=== PATIENT | female | born 1960 | race Caucasian/White ===

== ENCOUNTER 2019-07-21 19:28 | Inpatient (IN) | payer OTHER, MEDICAID ==
[~2019-07-21] VITALS: Ht 170.2 cm; Wt 81.6 kg
[2019-07-21 19:28] VITALS: BP_SYST 148
[2019-07-21] MEDS ORDERED: NACL 0.9% 1,000 ML IV ONE (19:47)
[2019-07-21 20:48] LABS: BASOPHILS # (AUTO) 0.1 K/uL (0.0-0.2); EOSINOPHILS # (AUTO) 0.2 K/uL (0.0-0.4); HEMATOCRIT 46.2 % (36-48); LYMPHOCYTES # (AUTO) 1.4 K/uL (1.0-5.5); NEUTROPHILS # (AUTO) 1.7 K/uL (1.8-7.7); RED CELL DISTRIBUTION WIDTH 15.5 % (9.0-15.0); WHITE BLOOD COUNT (AUTO) 3.7 K/uL (4.8-10.8)
[2019-07-21 20:51] LABS: CALCIUM 9.3 mg/dL (8.4-11.0); CREATININE 0.83 mg/dL (0.55-1.30); POTASSIUM 3.7 mmol/L (3.5-5.1)
[2019-07-21 20:53] LABS: INR 1.1 (0.8-1.2); PROTHROMBIN TIME 11.1 SECS (9.5-12.5)
[2019-07-21 20:54] LABS: EOSINOPHILS % (AUTO) 4.6 % (0.0-4.0); HEMOGLOBIN 15.3 g/dL (12.0-16.0); LYMPHOCYTES % (AUTO) 38.2 % (20.5-51.5); MEAN CORPUSCULAR HEMOGLOBIN 31 pg (27-31); MEAN CORPUSCULAR HGB CONC 33 % (32-36); MEAN CORPUSCULAR VOLUME 94 fL (79.0-98.0); MONOCYTES # (AUTO) 0.4 K/uL (0.0-1.0); MONOCYTES % (AUTO) 9.5 % (1.7-9.3); NEUTROPHILS % (AUTO) 45.7 % (40.0-70.0); PLATELET COUNT (AUTO) 183 K/uL (130-430); RED BLOOD CELL COUNT(AUTO) 4.94 MIL/uL (4.2-6.2)
[2019-07-21 20:57] LABS: ALBUMIN 3.4 g/dL (3.4-4.8); TOTAL BILIRUBIN 1.1 mg/dL (0.0-1.0)
[2019-07-21] MEDS ORDERED: LACOSAMIDE 100 MG TABLET PO ONE (22:15)
[2019-07-21] MEDS ORDERED: APIXABAN 2.5 MG TABLET PO ONE (22:15)
[2019-07-21 22:48] LABS: ACETAMINOPHEN < 1 ug/mL (1-30)
[2019-07-21 22:50] LABS: ALCOHOL, BLOOD < 3 mg/dL (<10)
[2019-07-21] MEDS ORDERED: LACOSAMIDE 100 MG TABLET ONE (22:50)
[2019-07-21 22:59] LABS: CHOLESTEROL 188 mg/dL (<200); HDL CHOLESTEROL 50 mg/dL (>55); LDL CHOLESTEROL 116 mg/dL (<100); TRIGLYCERIDES 97 mg/dL (30-150)
[2019-07-22] VITALS (11 sets, daily range): BP systolic 110–148
[2019-07-22 02:17] LABS: BILIRUBIN,URINE 1+ (NEGATIVE); CLARITY/URINE CLOUDY (CLEAR); COLOR,URINE YELLOW (YELLOW); GLUCOSE,URINE NEGATIVE (NEGATIVE); KETONES,URINE 1+ (NEGATIVE); LEUKOCYTE ESTERASE ,URINE 1+ (NEGATIVE); NITRITE, URINE POSITIVE (NEGATIVE); PH,URINE 5.5 (5.0-8.0); PROTEIN URINE 1+ (NEGATIVE)
[2019-07-22 02:20] LABS: BLOOD, URINE TRACE (NEGATIVE)
[2019-07-22 02:29] LABS: BARBITURATE, URINE NEGATIVE (NEG <=200); BENZODIAZEPINE, URINE POSITIVE (NEG <=150); CANNABINOID, URINE NEGATIVE (NEG <=50); COCAINE, URINE NEGATIVE (NEG <=150); METHAMPHETAMINES SCREEN,URINE NEGATIVE (NEG <=500); OPIATE, URINE NEGATIVE (NEG <=100); PHENCYCLIDINE SCREEN,URINE NEGATIVE (NEG <=25); UR TRICYCLIC ANTIDEPRESSANTS NEGATIVE (NEG <=300); URINE AMPHETAMINE NEGATIVE (NEG <=500); URINE METHADONE NEGATIVE (NEG <=200); URINE OXYCODONE SCREEN NEGATIVE (NEG <=100); URINE PROPOXYPHENE SCREEN NEGATIVE (NEG <=300)
[2019-07-22 02:50] LABS: BACTERIA,URINE MODERATE /HPF (None Seen); CALCIUM OXALATE CRYSTALS,UR 0-10 /HPF (None Seen)
[2019-07-22] MEDS ORDERED: NITROFURANTOIN MONOHYD/M-CRYST 100 MG CAPSULE PO ONE (04:30)
[2019-07-22] MEDS ORDERED: levETIRAcetam 1,000 MG IV BAG 100 ML IV ONE (08:00)
[2019-07-22] MEDS ORDERED: LORazepam 2 MG/ML VIAL IVP ONE ×3 (08:00→13:15)
[2019-07-22] MEDS ORDERED: LORazepam 2 MG/ML VIAL ONE ×3 (08:10→13:29)
[2019-07-22] MEDS ORDERED: levETIRAcetam 500 MG TABLET PO ONE (10:30)
[2019-07-22] MEDS ORDERED: LORazepam 2 MG/ML VIAL IM ONE (12:00)
[2019-07-22] MEDS ORDERED: levETIRAcetam 500 MG in NS 100 ML IV ONE (12:00)
[2019-07-22] MEDS: D5NS 1,000 ML IV SCH (14:45)
[2019-07-22] MEDS ORDERED: FLU VACC QS2019-20 36MOS UP/PF 60 MCG/0.5 ML SYRINGE I.M. PRN (21:00)
[2019-07-22] MEDS ORDERED: levETIRAcetam 500 MG in NS 100 ML IV SCH (21:00)
[2019-07-22] MEDS: levETIRAcetam 500 MG in NS 100 ML IV SCH (21:51)
[2019-07-23] VITALS (20 sets, daily range): BP systolic 97–153
[2019-07-23] MEDS: D5NS 1,000 ML IV SCH ×2 (06:44→16:44)
[2019-07-23] MEDS ORDERED: ESCITALOPRAM OXALATE 10 MG TABLET PO SCH (09:00)
[2019-07-23] MEDS: levETIRAcetam 500 MG in NS 100 ML IV SCH ×2 (09:09→22:04)
[2019-07-23] MEDS: ENOXAPARIN SODIUM 30 MG/0.3 ML SYRINGE SUBCUT SCH (09:11)
[2019-07-23] MEDS: CITALOPRAM HYDROBROMIDE 20 MG TABLET PO SCH (09:14)
[2019-07-23] MEDS: LORazepam 2 MG/ML VIAL IVP PRN (23:48)
[2019-07-24] VITALS (8 sets, daily range): BP systolic 110–147
[2019-07-24] MEDS: D5NS 1,000 ML IV SCH ×2 (06:41→14:57)
[2019-07-24] MEDS: LORazepam 2 MG/ML VIAL IVP PRN ×3 (09:02→20:06)
[2019-07-24] MEDS: levETIRAcetam 500 MG in NS 100 ML IV SCH ×2 (09:03→20:08)
[2019-07-24] MEDS ORDERED: LORA-259 PO (09:27)
[2019-07-24] MEDS ORDERED: GABA-531 PO (09:28)
[2019-07-24] MEDS ORDERED: APIX5TAB4 PO (09:28)
[2019-07-24] MEDS ORDERED: FAMO20TA8 PO (09:28)
[2019-07-24] MEDS ORDERED: DULO60CA41 PO (09:28)
[2019-07-24] MEDS ORDERED: CEL250 PO (09:28)
[2019-07-24] MEDS ORDERED: TIZA4TAB11 PO (09:28)
[2019-07-24] MEDS ORDERED: PRED5TAB PO (09:28)
[2019-07-24] MEDS ORDERED: LACO100T2 PO (09:28)
[2019-07-24] MEDS ORDERED: BACTROBAN TP (09:28)
[2019-07-24] MEDS ORDERED: INSU100V7 SUBCUT (09:28)
[2019-07-24] MEDS ORDERED: INSU100V9 SQ (09:28)
[2019-07-24] MEDS: ENOXAPARIN SODIUM 30 MG/0.3 ML SYRINGE SUBCUT SCH (10:38)
[2019-07-24] MEDS: CITALOPRAM HYDROBROMIDE 20 MG TABLET PO SCH (10:38)
[2019-07-24] MEDS: MORPHINE 2 MG/ML INJ. SYRINGE IVP PRN (22:04)
[2019-07-24] MEDS ORDERED: LORazepam 2 MG/ML VIAL IM SCH (23:00)
[2019-07-24] MEDS ORDERED: HALOPERIDOL LACTATE 5 MG/ML VIAL IM SCH (23:00)
[2019-07-24] MEDS ORDERED: DIPHENHYDRAMINE INJ 50 MG/ML VIAL IM SCH (23:00)
[2019-07-25 00:06] VITALS: BP_SYST 132
[2019-07-25 10:00] VITALS: BP_SYST 121
[2019-07-25] MEDS: levETIRAcetam 500 MG in NS 100 ML IV SCH ×2 (10:03→22:49)
[2019-07-25] MEDS: ENOXAPARIN SODIUM 30 MG/0.3 ML SYRINGE SUBCUT SCH (10:11)
[2019-07-25] MEDS: CITALOPRAM HYDROBROMIDE 20 MG TABLET PO SCH (10:17)
[2019-07-25] MEDS: QUEtiapine FUMARATE 25 MG TABLET PO SCH ×3 (10:17→22:50)
[2019-07-25 12:33] VITALS: BP_SYST 138
[2019-07-25] MEDS: MORPHINE 2 MG/ML INJ. SYRINGE IVP PRN (15:07)
[2019-07-25 16:07] VITALS: BP_SYST 129
[2019-07-25 20:00] VITALS: BP_SYST 132
[2019-07-25] MEDS: LORazepam 2 MG/ML VIAL IVP PRN (20:40)
[2019-07-25] MEDS: D5NS 1,000 ML IV SCH (22:55)
[2019-07-26 00:41] VITALS: BP_SYST 132
[2019-07-26] MEDS: D5NS 1,000 ML IV SCH ×2 (01:56→15:14)
[2019-07-26] MEDS: MORPHINE 2 MG/ML INJ. SYRINGE IVP PRN ×2 (03:06→13:09)
[2019-07-26 08:00] VITALS: BP_SYST 122
[2019-07-26] MEDS: levETIRAcetam 500 MG in NS 100 ML IV SCH (08:40)
[2019-07-26] MEDS: QUEtiapine FUMARATE 25 MG TABLET PO SCH ×2 (08:41→15:18)
[2019-07-26] MEDS: CITALOPRAM HYDROBROMIDE 20 MG TABLET PO SCH (08:41)
[2019-07-26] MEDS: ENOXAPARIN SODIUM 30 MG/0.3 ML SYRINGE SUBCUT SCH (08:48)
[2019-07-26] MEDS ORDERED: LEVOFLOXACIN 500 MG TABLET PO ONE (09:30)
[2019-07-26 13:46] VITALS: BP_SYST 122
[2019-07-26 17:59] VITALS: BP_SYST 120
[2019-07-26 18:02] VITALS: BP_SYST 155
[2019-07-27] MEDS ORDERED: LEVOFLOXACIN 500 MG TABLET PO SCH (10:00)
== END 2019-07-26 20:30 | DRG 101 ==
LOC: SED 19:28 → SIC 07-22 12:11 → SMU 07-23 19:08
PROVIDERS: ADMIT Internal Medicine Hospice and Palliative Medicine; ATTEND Internal Medicine Hospice and Palliative Medicine
PROC: 05H533Z Insertion of Infusion Device into Right Subclavian Vein, Percutaneous Approach (ICD-10-PCS; principal; 2019-07-23)
PROC: B546ZZA Ultrasonography of Right Subclavian Vein, Guidance (ICD-10-PCS; 2019-07-23)
DX: G40.919 Epilepsy, unspecified, intractable, without status epilepticus (principal); R45.851 Suicidal ideations; N39.0 Urinary tract infection, site not specified; E11.9 Type 2 diabetes mellitus without complications; I48.91 Unspecified atrial fibrillation; I10 Essential (primary) hypertension; F32.9 Major depressive disorder, single episode, unspecified; B19.20 Unspecified viral hepatitis C without hepatic coma; F41.9 Anxiety disorder, unspecified; F03.90 Unspecified dementia, unspecified severity, without behavioral disturbance, psychotic disturbance, mood disturbance, and anxiety; Z79.899 Other long term (current) drug therapy; Z88.0 Allergy status to penicillin; Z88.6 Allergy status to analgesic agent
CPT/HCPCS: 36415; 70450-TC; 71045; 80053; 80061; 80307; 81000-TC; 83036; 83690-TC; 84484; 85025; 85610-TC; 85730-TC; 87081; 87086; 92610-GN; 93005; 95816; 96365; 96375; 96376; 99291; C1751; G0480; G0481; G0482; J1200; J1630; J1650; J1953; J2060; J2270; J7042

== ENCOUNTER 2019-08-14 13:04 | Emergency (ER) | payer OTHER, MEDICAID ==
[~2019-08-14] VITALS: Ht 170.2 cm; Wt 83.9 kg
[~2019-08-14 13:04] MED LIST: APIX5TAB4 PO; BACTROBAN TP; CEL250 PO; DULO60CA41 PO; FAMO20TA8 PO; GABA-531 PO; INSU100V7 SUBCUT; INSU100V9 SQ; LACO100T2 PO; LORA-259 PO; PRED5TAB PO; TIZA4TAB11 PO
[2019-08-14 13:15] VITALS: BP_SYST 153
--- NOTE | 2019-08-14 13:22 | NUR ---
PATIENT PRESENTS TO THE ER WITH HX OF SUICIDAL IDEATION TODAY (ONCE AT 0500 AND 1230) PER CAREGIVER; PATIENT ALSO STATES RIGHT SHOULDER PAIN; NO TRAUMA, NO OTHER REMARKABLE S/S
--- NOTE | 2019-08-14 13:28 | NUR ---
PATIENT TO ER #6
--- NOTE | 2019-08-14 13:30 | NUR ---
Patient presents to ER C/O SUICIDAL IDEATION with out a plan . Patient A&Ox4, BIB BLS to ER, afebrile, skin pink and warm, pain 9/10 bilat legs, denies N/V/D. Patient states "I will kill myself if i get sent back to that nursing facility. They just put you in a corner and let you lay in your dirty diaper."
--- NOTE | 2019-08-14 13:48 | NUR ---
ER Dr. Mahtew at bedside examining patient.
--- NOTE | 2019-08-14 13:49 | NUR ---
Zuleika good in ED - 08/14/19 at 1540 by SDEDTD JOVANI Cazares at bedside examining patient.
[2019-08-14 14:26] LABS: BASOPHILS % (AUTO) 0.9 % (0.0-2.0); EOSINOPHILS # (AUTO) 0.1 K/uL (0.0-0.4); EOSINOPHILS % (AUTO) 2.6 % (0.0-4.0); HEMATOCRIT 42.4 % (36-48); HEMOGLOBIN 13.9 g/dL (12.0-16.0); LYMPHOCYTES # (AUTO) 2.1 K/uL (1.0-5.5); LYMPHOCYTES % (AUTO) 51.9 % (20.5-51.5); MEAN CORPUSCULAR HEMOGLOBIN 31 pg (27-31); MEAN CORPUSCULAR HGB CONC 33 % (32-36); MEAN CORPUSCULAR VOLUME 94 fL (79.0-98.0); MONOCYTES # (AUTO) 0.5 K/uL (0.0-1.0); MONOCYTES % (AUTO) 12.3 % (1.7-9.3); NEUTROPHILS # (AUTO) 1.3 K/uL (1.8-7.7); NEUTROPHILS % (AUTO) 32.3 % (40.0-70.0); PLATELET COUNT (AUTO) 153 K/uL (130-430); RED BLOOD CELL COUNT(AUTO) 4.52 MIL/uL (4.2-6.2); RED CELL DISTRIBUTION WIDTH 15.1 % (9.0-15.0)
[2019-08-14 15:05] LABS: ANION GAP 8 (5-15); CALCIUM 9.3 mg/dL (8.4-11.0); CHLORIDE 101 mmol/L (98-107); CREATININE 0.55 mg/dL (0.55-1.30); GLUCOSE 107 mg/dL (70-99); POTASSIUM 3.5 mmol/L (3.5-5.1); SODIUM SERUM 137 mmol/L (136-145); UREA NITROGEN, BLOOD 6 mg/dL (8-21)
[2019-08-14 15:11] LABS: GFR AFRICAN AMERICAN 145 mL/min (>90)
[2019-08-14 15:13] LABS: ACETAMINOPHEN < 1 ug/mL (1-30); ALANINE AMINOTRANSFERASE 22 U/L (12-78); ALBUMIN 3.5 g/dL (3.4-4.8); ALCOHOL, BLOOD < 3 mg/dL (<10); ASPARTATE AMINOTRANSFERASE 34 U/L (10-37); TOTAL BILIRUBIN 0.7 mg/dL (0.0-1.0)
--- NOTE | 2019-08-14 15:15 | NUR ---
Urine specimen collected and analyzed in ER. Results given to ER MD.# 14 FR In and Out catheter with use of sterile technique. Immediate return of 20 ml yellow urine noted. Urine sample collected and sent to lab. Pt tolerated procedure well. Patient unable to toilet self.
[2019-08-14 16:07] LABS: BILIRUBIN,URINE NEGATIVE (NEGATIVE); BLOOD, URINE NEGATIVE (NEGATIVE); COLOR,URINE YELLOW (YELLOW); GLUCOSE,URINE NEGATIVE (NEGATIVE); KETONES,URINE TRACE (NEGATIVE); LEUKOCYTE ESTERASE ,URINE NEGATIVE (NEGATIVE); NITRITE, URINE NEGATIVE (NEGATIVE); PH,URINE 6.5 (5.0-8.0); PROTEIN URINE NEGATIVE (NEGATIVE)
[2019-08-14 16:26] LABS: CLARITY/URINE HAZY (CLEAR)
[2019-08-14 17:24] LABS: BARBITURATE, URINE NEGATIVE (NEG <=200); BENZODIAZEPINE, URINE POSITIVE (NEG <=150); CANNABINOID, URINE NEGATIVE (NEG <=50); COCAINE, URINE NEGATIVE (NEG <=150); METHAMPHETAMINES SCREEN,URINE NEGATIVE (NEG <=500); OPIATE, URINE NEGATIVE (NEG <=100); PHENCYCLIDINE SCREEN,URINE NEGATIVE (NEG <=25); UR TRICYCLIC ANTIDEPRESSANTS NEGATIVE (NEG <=300); URINE AMPHETAMINE NEGATIVE (NEG <=500); URINE METHADONE NEGATIVE (NEG <=200); URINE OXYCODONE SCREEN NEGATIVE (NEG <=100); URINE PROPOXYPHENE SCREEN NEGATIVE (NEG <=300)
--- NOTE | 2019-08-14 18:15 | NUR ---
Davide Kline at bedside
--- NOTE | 2019-08-14 18:15 | NUR ---
[facility], Psych Lawrence Phuc, intake given report for possible admission.
--- NOTE | 2019-08-14 18:30 | NUR ---
Patient given ER box lunch
--- NOTE | 2019-08-14 19:20 | NUR ---
REPORT GIVEN TO DENTON STERN
--- NOTE | 2019-08-14 19:50 | NUR ---
RECEIVED AWAKE, ALERT, VERBALLY RESPONSIVE. AFEBRILE, NOT IN ACUTE DISTRESS. NO PAIN OR DISCOMFORT NOTED. SITTER AT BEDSIDE FOR SUICIDE PRECAUTION. WILL CONTINUE TO MONITOR
--- NOTE | 2019-08-14 23:00 | NUR ---
AWAKE, NOT IN ANY KIND OF DISTRESS. NO PAIN OR DISCOMFORT NOTED. STILL NO ACCEPTING PSYCHIATRIC FACILITY AT THIS TIME. SITTER REMAINS AT BEDSIDE. WILL CONTINUE TO MONITOR. NEEDS ATTENDED.
[2019-08-15] MEDS ORDERED: ACETAMINOPHEN 500 MG TABLET PO ONE ×2 (04:30→09:00)
--- NOTE | 2019-08-15 04:54 | NUR ---
COMPLAINED OF HEADACHE. MD NOTIFIED. TYLENOL 1 GM PO GIVEN ORDERED.
--- NOTE | 2019-08-15 05:00 | NUR ---
PT. HAS BEEN REFUSING TO EAT. FINGERSTICK BLOOD SUGAR CHECK DONE AND IS 122.
--- NOTE | 2019-08-15 07:00 | NUR ---
AWAKE,HEADACHE BETTER. VS REMAIN STABLE. WILL ENDORSE CARE TO AM SHIFT.
--- NOTE | 2019-08-15 07:09 | NUR ---
ENDORSED CARE TO AM SHIFT NURSE ROX METZGER.
--- NOTE | 2019-08-15 08:46 | NUR ---
REASSESSMENT; FULL HEAD TO TOE ASSESSMENT WITH LINEN CHANGE; PATIENT REMAINS WITH SUICIDAL IDEATION; STATES GENERALIZED HEADACHE; ERMD ADVISED; OTHERWISE UNCHANGED; PATIENT DISPOSITION TO PSYCHATRY PENDING
--- NOTE | 2019-08-15 08:49 | NUR ---
PATIENT DECLINED MEDICATION FOR HEADACHE; BLOOD GLUCOSE 118
[2019-08-15] MEDS ORDERED: APIXABAN 2.5 MG TABLET PO SCH (10:45)
[2019-08-15] MEDS ORDERED: MYCOPHENOLATE MOFETIL 250 MG CAPSULE PO SCH (10:45)
[2019-08-15] MEDS ORDERED: PREDNISONE 5 MG TABLET PO ONE (10:45)
[2019-08-15] MEDS ORDERED: DULoxetine HCL 30 MG CAPSULE.DR (CYMBALTA) PO SCH (10:45)
[2019-08-15] MEDS ORDERED: tiZANidine HCL 4 MG TABLET PO SCH (10:45)
[2019-08-15] MEDS ORDERED: FAMOTIDINE 20 MG TABLET PO ONE (10:45)
[2019-08-15] MEDS ORDERED: APIXABAN 2.5 MG TABLET PO ONE (10:45)
--- NOTE | 2019-08-15 10:45 | NUR ---
REASSESSMENT; PATIENT DENIES PAIN CURRENTLY; REFUSING MEDICATIONS AND MEALS; OTHERWISE UNCHANGED; ERMD ADVISED
[2019-08-15] MEDS ORDERED: tiZANidine HCL 4 MG TABLET PO ONE (11:30)
[2019-08-15] MEDS ORDERED: MYCOPHENOLATE MOFETIL 250 MG CAPSULE PO ONE (11:30)
[2019-08-15] MEDS ORDERED: DULoxetine HCL 30 MG CAPSULE.DR (CYMBALTA) PO ONE (11:30)
--- NOTE | 2019-08-15 12:09 | NUR ---
PATIENT OFFERED DIABETIC LUNCH AND WAS ABLE TO EAT WELL; AGREED TO TAKE MEDICATIONS; OTHERWISE UNCHANGED
--- NOTE | 2019-08-15 12:25 | NUR ---
PATIENT WAS ABLE TO TAKE SEVERAL MEDICATIONS; BUT REFUSED PREDNISONE, CELLCEPT, DULOXETINE, ELIQUIS
[2019-08-15] MEDS: LACOSAMIDE 100 MG TABLET PO SCH ×2 (13:06→21:00)
--- NOTE | 2019-08-15 13:12 | NUR ---
REASSESSMENT; PATIENT AGREED TO TAKE VIMPAT AND DULOXETINE; HOWEVER STILL DECLINES ALL PREVIOUS; PATIENT REMAINS SEDATE AND PAIN FREE AND IS OTHERWISE UNCHANGED; DISPOSITION PENDING
--- NOTE | 2019-08-15 15:05 | NUR ---
REASSESSMENT; PATIENT IS SEDATE AND UNCHANGED; DISPOSITION PENDING
--- NOTE | 2019-08-15 17:52 | NUR ---
REASSESSMENT; PATIENT UPGRADED TO HOSPITAL BED, REMAINS SEDATE AND PAIN FREE; DIABETIC DINNER ORDERED; OTHERWISE UNCHANGED; DISPOSITION PENDING
--- NOTE | 2019-08-15 19:43 | NUR ---
Pt resting comfortably in bed with no signs of distress
--- NOTE | 2019-08-15 20:50 | NUR ---
Pt resting comfortably in bed with no signs of distress
--- NOTE | 2019-08-15 22:00 | NUR ---
PT resting comfortably in bed with no signs of distress
[2019-08-15] MEDS: DULoxetine HCL 30 MG CAPSULE.DR (CYMBALTA) PO SCH (22:17)
--- NOTE | 2019-08-15 23:50 | NUR ---
Medication administered. Pt tolerated well.
[2019-08-15] MEDS: tiZANidine HCL 4 MG TABLET PO SCH (23:56)
[2019-08-16] MEDS: MYCOPHENOLATE MOFETIL 250 MG CAPSULE PO SCH ×3 (00:02→23:10)
--- NOTE | 2019-08-16 00:19 | NUR ---
Eliquis not loaded in [employer]. supervisor liquid yeast made aware. Unable to override eliquis in system. Pt refused Vimpat and requested Ativan. Dr. Antonio notified.
--- NOTE | 2019-08-16 01:38 | NUR ---
Pt resting comfortably in bed with no signs of distress.
--- NOTE | 2019-08-16 03:35 | NUR ---
Care endorsed to Piero STERN
--- NOTE | 2019-08-16 03:45 | NUR ---
Pt resting comfortably in bed with no complaints
--- NOTE | 2019-08-16 04:07 | NUR ---
Report received from LEENA Burch. All care endorsed.
--- NOTE | 2019-08-16 05:59 | NUR ---
Pt resting in bed with no complaints. Vital signs stable.
--- NOTE | 2019-08-16 07:07 | NUR ---
Report given to LEENA Honeycutt to endorse all care.
[2019-08-16] MEDS: LACOSAMIDE 100 MG TABLET PO SCH ×2 (09:00→23:11)
--- NOTE | 2019-08-16 09:00 | NUR ---
PT RESTING IN BED, NO COMPLAINTS AT THIS TIME, AO3, COMPLIANT WITH CARE.
[2019-08-16] MEDS: tiZANidine HCL 4 MG TABLET PO SCH ×3 (10:36→23:11)
[2019-08-16] MEDS: DULoxetine HCL 30 MG CAPSULE.DR (CYMBALTA) PO SCH (10:37)
[2019-08-16] MEDS: APIXABAN 2.5 MG TABLET PO SCH ×3 (10:38→21:00)
--- NOTE | 2019-08-16 11:00 | NUR ---
CLEANED UP PT AFTER USING RESTROOM. SHE IS ABLE TO ASSIST WITH TURNING AND CLEANING. UNABLE TO USE BEDSIDE COMMODE DUE TO WEAKNESS
--- NOTE | 2019-08-16 12:30 | NUR ---
PT IN BED NO OUTWARD DISTRESS, PT BLOOD PRESSURE LOW. DR FLETCHER NOTIFIED AND ORDERS MADE.
[2019-08-16] MEDS ORDERED: NACL 0.9% 1,000 ML IV ONE (12:45)
--- NOTE | 2019-08-16 13:30 | NUR ---
PT VSS, AO3, CALM AND COOPERATIVE, NO DISTRESS.
--- NOTE | 2019-08-16 14:30 | NUR ---
PT IN BED, SLEEPING AT THIS TIME.
--- NOTE | 2019-08-16 15:30 | NUR ---
SLEEPING AT THIS TIME. VSS
--- NOTE | 2019-08-16 16:30 | NUR ---
PT IS AWAKE AND DOES NOT APPEAR TO BE IN ANY DISTRESS AT THIS TIME. COMFORTABLE IN THE BED.
--- NOTE | 2019-08-16 17:45 | NUR ---
PT AWAKE, CALM AND COOPERATIVE, NO S/S OF DISTRESS
--- NOTE | 2019-08-16 19:00 | NUR ---
PT RESTING IN BED AT THIS TIME NO COMPLAINTS
--- NOTE | 2019-08-16 20:44 | NUR ---
Called dry house tender to obtain medications Elliquis, tizandine and vimpat due to not having them in ER pixus. Pneumatic Drum Sander states, "I will look for it and bring it to you if I can find these medications."
--- NOTE | 2019-08-16 21:40 | NUR ---
Obtained vimpat and tizanide from Program Consultant but was told by Program Consultant Cedrick is not in any pixus.
--- NOTE | 2019-08-16 22:00 | NUR ---
Attempted to administered medications to patient. Pt responds by pointing at me and glaring. Pt then yells "OUT".
--- NOTE | 2019-08-16 23:13 | NUR ---
Note latisha in [facility] - 08/17/19 at 0256 by KAI Patient resting quietly. No acute distress noted. Vital signs within normal range.
--- NOTE | 2019-08-16 23:13 | NUR ---
Attempted to medicate pt and pt states, "I do not need medications." Pt states "I will not take those."
--- NOTE | 2019-08-17 00:20 | NUR ---
Patient resting quietly. No acute distress noted. Vital signs within normal range.
--- NOTE | 2019-08-17 01:54 | NUR ---
Pt gown changed. Perineal care given. Bed linens changed. Pt tolerated well.
--- NOTE | 2019-08-17 02:33 | NUR ---
Pt sleeping at this time. No distress noted.
--- NOTE | 2019-08-17 04:31 | NUR ---
Pt asks for water. Water provided to pt. Will continue to monitor.
--- NOTE | 2019-08-17 06:07 | NUR ---
Pt resting in bed. Pt states no pain at this time.
--- NOTE | 2019-08-17 07:13 | NUR ---
Report given to LEENA Teixeira to endorse all care.
--- NOTE | 2019-08-17 09:26 | NUR ---
REASSESSMENT; FULL HEAD TO TOE ASSESSMENT; NO REMARKABLE ACUTE FINDINGS OR S/S; PATIENT REFUSING MEDICATIONS AND BREAKFAST AND IS DEPONDANT REGARDING POSSIBLE RETURN TO SNF; HOWEVER, DENIES ANY SUICIDAL IDEATION; NO OTHER REMARKABLE S/S; DISPOSITION PENDING
--- NOTE | 2019-08-17 09:38 | NUR ---
MALINDA CARE AND LINEN CHANGED
--- NOTE | 2019-08-17 11:12 | NUR ---
REASSESSMENT; PATIENT REMAINS SEDATE AND UNCHANGED; NO SUICIDAL IDEATION, HOWEVER REFUSING MEALS AND MEDS; DISPOSITION PENDING
--- NOTE | 2019-08-17 12:46 | NUR ---
REASSESSMENT; PATIENT IS SEDATE AND UNCHANGED; DIABETIC LUNCH PROVIDED; PATIENT REFUSING MEDICATIONS; DISPOSITION PENDING
--- NOTE | 2019-08-17 12:47 | NUR ---
DR MARTINEZ DUE TO EVALUATE PATIENT FOR CESSATION OF 5150 HOLD DURATION
--- NOTE | 2019-08-17 14:29 | NUR ---
DR MARTINEZ HERE TO ASSESS PATIENT Addendum: 08/17/19 at 1446 by MEDMT CORRECTION; DR WATERS HERE TO SEE PATIENT
--- NOTE | 2019-08-17 14:47 | NUR ---
PATIENT PLACED ON [address] WATERS
--- NOTE | 2019-08-17 15:27 | NUR ---
REASSESSMENT; PATIENT DECLINES MEDICATIONS; HOWEVER STATES SHE WILL TAKE THEM WITH DINNER TONIGHT; OTHERWISE SEDATE AND UNCHANGED
--- NOTE | 2019-08-17 16:17 | NUR ---
LINEN CHANGE AND MALINDA CARE
--- NOTE | 2019-08-17 17:54 | NUR ---
Pt laying in bed comfortably with no signs of distress. Pt states she will take medications after dinner.
--- NOTE | 2019-08-17 19:00 | NUR ---
Security at bedside to buddy harris
--- NOTE | 2019-08-17 20:51 | NUR ---
Pt given dinner tray. Pt laying in bed comfortably with no complaints
--- NOTE | 2019-08-17 21:37 | NUR ---
Pt refusing medication at this time.
--- NOTE | 2019-08-17 22:46 | NUR ---
Pt assisted with bed white. Pt had 1 bowel movement, tolerated well. Will continue to monitor.
[2019-08-17] MEDS: MYCOPHENOLATE MOFETIL 250 MG CAPSULE PO SCH (23:55)
[2019-08-17] MEDS: DULoxetine HCL 30 MG CAPSULE.DR (CYMBALTA) PO SCH (23:56)
[2019-08-17] MEDS: tiZANidine HCL 4 MG TABLET PO SCH (23:57)
[2019-08-17] MEDS: APIXABAN 2.5 MG TABLET PO SCH (23:57)
--- NOTE | 2019-08-18 | NUR ---
Pt agreed to take PM meds. Pt toleratd well. No adverse reactions noted.
--- NOTE | 2019-08-18 01:15 | NUR ---
Pt resting comfortably in bed with no signs of distress
--- NOTE | 2019-08-18 02:34 | NUR ---
Pt resting comfortably with no signs of distress. Water provided per pt request.
--- NOTE | 2019-08-18 03:36 | NUR ---
Pt resting comfortably in bed with no signs of distress.
--- NOTE | 2019-08-18 04:22 | NUR ---
Sanitary wipes provided per pt request. Room lights turned on.
--- NOTE | 2019-08-18 05:43 | NUR ---
Pt sleeping in bed with no signs of distress.
--- NOTE | 2019-08-18 07:05 | NUR ---
Care endorsed to Puneet STERN
--- NOTE | 2019-08-18 07:44 | NUR ---
FULL HEAD TO TOE ASSESSMENT; PATIENT REMAINS NON SUICIDAL; PAIN FREE AND SEDATE; SLIGHT CONFUSION; PATIENT STATES SHE WILL TAKE HER MEDICATIONS TODAY AND EAT HER MEALS; NO OTHER ACUTE S/S; DISPOSITON TO PSYCHIATRY FACILITY PENDING
--- NOTE | 2019-08-18 07:56 | NUR ---
BREAKFAST (DIABETIC DIET)
[2019-08-18 08:37] LABS: BASOPHILS % (AUTO) 0.9 % (0.0-2.0); EOSINOPHILS # (AUTO) 0.1 K/uL (0.0-0.4); EOSINOPHILS % (AUTO) 2.7 % (0.0-4.0); HEMATOCRIT 47.4 % (36-48); HEMOGLOBIN 15.7 g/dL (12.0-16.0); LYMPHOCYTES # (AUTO) 1.8 K/uL (1.0-5.5); LYMPHOCYTES % (AUTO) 45.4 % (20.5-51.5); MEAN CORPUSCULAR HEMOGLOBIN 31 pg (27-31); MEAN CORPUSCULAR HGB CONC 33 % (32-36); MEAN CORPUSCULAR VOLUME 93 fL (79.0-98.0); MONOCYTES # (AUTO) 0.4 K/uL (0.0-1.0); NEUTROPHILS # (AUTO) 1.6 K/uL (1.8-7.7); PLATELET COUNT (AUTO) 178 K/uL (130-430); RED BLOOD CELL COUNT(AUTO) 5.08 MIL/uL (4.2-6.2)
[2019-08-18 08:38] LABS: CREATININE 0.59 mg/dL (0.55-1.30); POTASSIUM 3.8 mmol/L (3.5-5.1)
[2019-08-18 08:45] LABS: ALBUMIN 3.5 g/dL (3.4-4.8); TOTAL BILIRUBIN 1.1 mg/dL (0.0-1.0)
--- NOTE | 2019-08-18 10:52 | NUR ---
REASSESSMENT; PATIENT REMAINS SEDATE AND UNCHANGED; MEDICATION AGREES TO MEDICATION ADMINISTRATION; DISPOSITION PENDING
[2019-08-18] MEDS: MYCOPHENOLATE MOFETIL 250 MG CAPSULE PO SCH (11:23)
[2019-08-18] MEDS: tiZANidine HCL 4 MG TABLET PO SCH ×2 (11:23→23:21)
[2019-08-18] MEDS: DULoxetine HCL 30 MG CAPSULE.DR (CYMBALTA) PO SCH (11:25)
[2019-08-18] MEDS: APIXABAN 2.5 MG TABLET PO SCH (11:26)
--- NOTE | 2019-08-18 13:44 | NUR ---
CURSORY SPOT BATH, MALINDA CARE AND LINEN; PATIENT SEDATE AND UNCHANGED; DENIES ANY SYMPTOMS
--- NOTE | 2019-08-18 16:50 | NUR ---
REASSESSMENT; DIABETIC DINNER; PATIENT REMAINS SEDATE AND PAIN FREE; DISPOSITION TO PSYCHIATRIC FACILITY PENDING WHEN ACCEPTED; ([facility]IORAL [facility] CALL CENTER EFFORTS UNSUCCESSFUL)
[2019-08-18] MEDS: LACOSAMIDE 100 MG TABLET PO SCH ×2 (17:46→23:21)
--- NOTE | 2019-08-18 19:30 | NUR ---
Pt Resting in ED bed. No acute distress noted. Pt provided with lean water, assisted with jeremiah care
--- NOTE | 2019-08-18 20:33 | NUR ---
Pt resting in ED Bed. No distress at this time. Pt has no new complaint, Offered clean water and warm blankets.
--- NOTE | 2019-08-18 22:07 | NUR ---
Pt resting in ED Bed. No distress at this time. Pt has no new complaint, Offered clean water and warm blankets.
--- NOTE | 2019-08-18 23:51 | NUR ---
Pt resting in ED Bed. No distress at this time. Pt has no new complaint, Offered clean water and warm blankets.
--- NOTE | 2019-08-19 01:00 | NUR ---
Pt resting in ED Bed. No distress at this time. Pt has no new complaint, Offered clean water and warm blankets.
--- NOTE | 2019-08-19 02:12 | NUR ---
No distress at this time. Pt has no new complaint, Offered clean water and warm blankets. pt sleeping
--- NOTE | 2019-08-19 04:00 | NUR ---
No distress at this time. Pt has no new complaint, Offered clean water and warm blankets. pt sleeping
--- NOTE | 2019-08-19 04:50 | NUR ---
Pt resting in ED Bed. No distress at this time. Pt has no new complaint, Offered clean water and warm blankets.
--- NOTE | 2019-08-19 06:03 | NUR ---
Pt resting in ED Bed. No distress at this time. Pt has no new complaint, Offered clean water and warm blankets.
--- NOTE | 2019-08-19 07:10 | NUR ---
Rocio care performed, full sheet and gown change performed. pt urinated on self, was cooperative during change. after cleaning, Pt resting in ED Bed. No distress at this time. Pt has no new complaint, Offered clean water and warm blankets.
[2019-08-19] MEDS: tiZANidine HCL 4 MG TABLET PO SCH (10:18)
[2019-08-19] MEDS: APIXABAN 2.5 MG TABLET PO SCH (10:18)
[2019-08-19] MEDS: MYCOPHENOLATE MOFETIL 250 MG CAPSULE PO SCH (10:19)
--- NOTE | 2019-08-19 21:30 | NUR ---
Pt is resting comfortably and quietly in bed. Visualized chest rise and fall, breathing equal and unlabored. Will continue to monitor for safety.
--- NOTE | 2019-08-19 22:30 | NUR ---
Pt is sleeping in bed, no acute distress noted at this time. Will continue to monitor.
--- NOTE | 2019-08-19 22:30 | NUR ---
Pt is refusing vital signs at this time, ER MD aware. Pt is A&Ox3 no signs of distress. Will continue to monitor.
--- NOTE | 2019-08-19 23:30 | NUR ---
Pt is sleeping in bed, no acute distress noted at this time. Will continue to monitor.
--- NOTE | 2019-08-19 23:45 | NUR ---
Pt has been turned to prevent skin breakdown.
--- NOTE | 2019-08-20 01:45 | NUR ---
Pt has been turned to prevent skin breakdown.
--- NOTE | 2019-08-20 02:30 | NUR ---
Pt is resting in bed, no acute distress noted at this time.
--- NOTE | 2019-08-20 03:45 | NUR ---
Pt has been turned to prevent skin breakdown.
--- NOTE | 2019-08-20 03:50 | NUR ---
Pt is incontinent, pt has been cleaned and new linens applied to bed. Pt placed in position of comfort, will continue to monitor.
--- NOTE | 2019-08-20 04:30 | NUR ---
Pt refusing vital signs at this time, ER MD aware.
--- NOTE | 2019-08-20 05:45 | NUR ---
Pt has been turned to prevent skin breakdown
--- NOTE | 2019-08-20 05:49 | NUR ---
Pt is sleeping in bed, no acute distress noted at this time. Will continue to monitor.
--- NOTE | 2019-08-20 07:10 | NUR ---
Report given to Yinka STERN for continuation of care.
--- NOTE | 2019-08-20 08:00 | NUR ---
PT RESTING IN BED AT THIS TIME NO DISTRESS NOTED
--- NOTE | 2019-08-20 09:55 | NUR ---
PT REFUSED MEDICATION, STATED "I AM NOT TAKING ANOTHER DAMN THING IN THIS PLACE. I DONT CARE IF YOU SEND ME TO GROUP HOME, IM NOT HAVING NEEDLES FALL OUT OF MY ASS."
--- NOTE | 2019-08-20 11:30 | NUR ---
PT RESTING IN BED TALKING TO SELF.
--- NOTE | 2019-08-20 13:00 | NUR ---
PT RESTING IN BED AT THIS TIME NO S/S OF DISTRESS
--- NOTE | 2019-08-20 13:09 | NUR ---
Social Service Note: NUHA received call from Olivia at the [facility] ([phone]); Olivia states that the call center has exhausted their efforts in finding a inpatient bed for the pt. Olivia suggests sending pt to a SNF that has a psych unit. NUHA spoke with ED physician to confirm that pt is being evaluated by psychiatrist today to determine if pt can be discharged to a lower level of care/or back to the SNF where pt came from. NUHA placed call to [facility] ([phone]) WASTEWATER TREATMENT OPERATOR was told to call Panda in the Admission Department at ([phone]); NUHA spoke to Panda who states that they will accept the pt back at [facility]. Panda asked for the ED staff to send a packet to the [facility] Admitting Department ([phone]); once patient is cleared by psychiatrist and is cleared to return to SNF; ED staff to fax pt's information to SNF. Number to call for report and obtain bed number will be ([phone] or [phone]). NUHA has updated ED nurse that packet needs to be sent to SNF for review. NUHA will remain available for support and will follow up as needed.
--- NOTE | 2019-08-20 15:10 | NUR ---
PT REFUSED VITAL SIGNS, AGITATED AND YELLING OUT AT THIS TIME.
--- NOTE | 2019-08-20 17:17 | NUR ---
PT RESTING IN BED NO DISTRESS AT THIS TIME VSS
--- NOTE | 2019-08-20 17:23 | NUR ---
Note latisha in ED - 08/20/19 at 1748 by SDEDDW PT OYSTER UNLOADER HAD TO LEAVE BEDSIDE FOR FAMILY MATTERS. NAME AND PHONE NUMBER (RAMESH GARCIA [phone]). WISHES TO BE CALLED WHEN TRANSFERRED.
--- NOTE | 2019-08-20 17:50 | NUR ---
S CREW ARRIVAL TIME WAS SET FOR 1630, HOWEVER NO CREW ON SITE AT THIS TIME. SERVICE CALLED REGARDING CREW ARRIVAL TIME. NEW ETA 1830 DUE TO HOLD UP AT ANOTHER DISCHARGE.
[2019-08-20 19:30] VITALS: BP_SYST 130
--- NOTE | 2019-08-20 19:31 | NUR ---
Patient to be transferred to [facility]. Is being transferred due to higher level of care. Receiving facility has accepting physician and available space. ER physician has signed transfer form. Patient or responsible alliance party has agreed to transfer and signed form. Patient belongings inventoried and will be sent with patient. Copy of nursing notes, lab reports, EKG, Physicians Orders and X-rays to be sent with patient. Report called to JAREK at receiving facility. [facility] ambulance service has been called for transfer.
== END 2019-08-20 19:30 ==
LOC: SED 13:04
DX: R45.851 Suicidal ideations (principal); E11.9 Type 2 diabetes mellitus without complications; I10 Essential (primary) hypertension; I48.91 Unspecified atrial fibrillation; Z86.19 Personal history of other infectious and parasitic diseases; Z00.8 Encounter for other general examination; Z79.4 Long term (current) use of insulin; Z79.899 Other long term (current) drug therapy; Z88.0 Allergy status to penicillin; Z88.6 Allergy status to analgesic agent
CPT/HCPCS: 36415; 80053; 80307; 81003; 82550; 82962; 83605; 85025; 87081; 99285; G0480; G0481; G0482; J7030; J7512; J7517

== ENCOUNTER 2023-04-29 14:12 | Emergency (ER) | payer MEDICAID, OTHER ==
[~2023-04-29] VITALS: Ht 167.6 cm; Wt 81.6 kg
[~2023-04-29 14:12] MED LIST changes: -DULO60CA41 PO; +DULO60CA42 PO; -TIZA4TAB11 PO; +ZAN4 PO
[2023-04-29 14:40] VITALS: BP_SYST 142; PULSE 104; RESP 18; TEMP 98.1; O2SAT 100
[2023-04-29] MEDS ORDERED: HYDROcodone/ACETAMIN 7.5-325 MG TAB PO ONE (14:45)
[2023-04-29 15:23] LABS: BASOPHILS % (AUTO) 0.6 % (0.0-2.0); EOSINOPHILS # (AUTO) 0.1 K/uL (0.0-0.4); EOSINOPHILS % (AUTO) 4.8 % (0.0-4.0); HEMATOCRIT 35.8 % (36-48); HEMOGLOBIN 11.7 g/dL (12.0-16.0); LYMPHOCYTES # (AUTO) 1.2 K/uL (1.0-5.5); LYMPHOCYTES % (AUTO) 40.2 % (20.5-51.5); MEAN CORPUSCULAR HEMOGLOBIN 31 pg (27-31); MEAN CORPUSCULAR HGB CONC 33 % (32-36); MEAN CORPUSCULAR VOLUME 95 fL (79.0-98.0); MONOCYTES # (AUTO) 0.3 K/uL (0.0-1.0); MONOCYTES % (AUTO) 11.5 % (1.7-9.3); NEUTROPHILS # (AUTO) 1.3 K/uL (1.8-7.7); NEUTROPHILS % (AUTO) 42.9 % (40.0-70.0); PLATELET COUNT (AUTO) 130 K/uL (130-430); RED BLOOD CELL COUNT(AUTO) 3.76 MIL/uL (4.2-6.2); RED CELL DISTRIBUTION WIDTH 14.7 % (9.0-15.0)
[2023-04-29 15:39] LABS: ANION GAP 7 (5-15); CALCIUM 9.6 mg/dL (8.4-11.0); CARBON DIOXIDE 30 mmol/L (23-29); CHLORIDE 98 mmol/L (98-107); CREATININE 0.86 mg/dL (0.55-1.30); GFR AFRICAN AMERICAN 85 mL/min (>90); GLUCOSE 169 mg/dL (74-106); INR 1.1 (0.8-1.2); POTASSIUM 4.3 mmol/L (3.5-5.1); PROTHROMBIN TIME 11.3 SECS (9.5-12.5); SODIUM SERUM 135 mmol/L (136-145); UREA NITROGEN, BLOOD 16 mg/dL (8-21)
[2023-04-29 15:43] LABS: GFR NON AFRICAN-AMERICAN 71 mL/min (>90)
[2023-04-29 15:49] LABS: ALANINE AMINOTRANSFERASE 7 U/L (12-78); ALBUMIN 3.1 g/dL (3.4-4.8); ASPARTATE AMINOTRANSFERASE 12 U/L (10-37); TOTAL BILIRUBIN 0.3 mg/dL (0.0-1.0); TOTAL PROTEIN, SERUM 7.9 g/dL (6.4-8.3)
[2023-04-29] MEDS ORDERED: MORPHINE 2 MG/ML INJ. SYRINGE IM ONE (17:45)
[2023-04-29] MEDS ORDERED: LORazepam 2 MG/ML VIAL ONE (18:43)
[2023-04-29] MEDS ORDERED: LORazepam 2 MG/ML VIAL IVP ONE (19:00)
[2023-04-29] MEDS ORDERED: LEVETIRACETAM IV ONE (19:00)
[2023-04-29] MEDS ORDERED: NS IV ONE (19:00)
[2023-04-29] MEDS ORDERED: levETIRAcetam 500 MG TABLET ONE (19:12)
[2023-04-29] MEDS ORDERED: LORazepam 2 MG/ML VIAL IM ONE (19:15)
[2023-04-29] MEDS ORDERED: levETIRAcetam 500 MG TABLET PO ONE (19:15)
[2023-04-29 23:44] VITALS: BP_SYST 120; PULSE 79; RESP 18; TEMP 97.5; O2SAT 98
== END 2023-04-29 23:44 | disposition home or self-care (01) ==
LOC: SED 14:12
DX: R07.9 Chest pain, unspecified (principal); R56.9 Unspecified convulsions; M79.661 Pain in right lower leg; R11.0 Nausea; E11.9 Type 2 diabetes mellitus without complications; I10 Essential (primary) hypertension; Z88.0 Allergy status to penicillin; Z88.6 Allergy status to analgesic agent; Z79.4 Long term (current) use of insulin; Z79.899 Other long term (current) drug therapy
CPT/HCPCS: 99285; 71045; 80053; 85025; 85610; 85730; 84484; 36415; 96372; J2060; J2270

== ENCOUNTER 2023-04-30 23:12 | Inpatient (IN) | payer SELFPAY ==
[~2023-04-30] VITALS: Ht 167.6 cm; Wt 76.3 kg
[2023-04-30 23:17] VITALS: BP_SYST 116; PULSE 83; RESP 18; TEMP 96.6; O2SAT 100
[2023-04-30] MEDS ORDERED: levETIRAcetam 1,000 MG IV BAG 100 ML IV ONE (23:45)
[2023-05-01] VITALS (8 sets, daily range): BP systolic 124–142; PULSE 71–88; RESP 16–19; TEMP 97.1–98.1; O2SAT 97–100
[2023-05-01 00:28] LABS: HEMATOCRIT 30.5 % (36-48); HEMOGLOBIN 9.9 g/dL (12.0-16.0); MEAN CORPUSCULAR HEMOGLOBIN 31 pg (27-31); MEAN CORPUSCULAR HGB CONC 33 % (32-36); MEAN CORPUSCULAR VOLUME 94 fL (79.0-98.0); PLATELET COUNT (AUTO) 121 K/uL (130-430); RED BLOOD CELL COUNT(AUTO) 3.24 MIL/uL (4.2-6.2); RED CELL DISTRIBUTION WIDTH 14.5 % (9.0-15.0); WHITE BLOOD COUNT (AUTO) 2.4 K/uL (4.8-10.8)
[2023-05-01 00:42] LABS: CREATININE 0.79 mg/dL (0.55-1.30); POTASSIUM 4.1 mmol/L (3.5-5.1)
[2023-05-01 00:47] LABS: ALBUMIN 2.7 g/dL (3.4-4.8); TOTAL BILIRUBIN 0.3 mg/dL (0.0-1.0); TOTAL PROTEIN, SERUM 6.7 g/dL (6.4-8.3)
[2023-05-01 01:02] LABS: BILIRUBIN,URINE NEGATIVE (NEGATIVE); BLOOD, URINE NEGATIVE (NEGATIVE); CLARITY/URINE CLEAR (CLEAR); COLOR,URINE YELLOW (YELLOW); GLUCOSE,URINE NEGATIVE (NEGATIVE); KETONES,URINE NEGATIVE (NEGATIVE); LEUKOCYTE ESTERASE ,URINE 3+ (NEGATIVE); NITRITE, URINE NEGATIVE (NEGATIVE); PH,URINE 7.5 (5.0-8.0); PROTEIN URINE NEGATIVE (NEGATIVE); UROBILINOGEN,URINE 0.2 (0.2-1.0)
[2023-05-01] MEDS ORDERED: levETIRAcetam 500 MG TABLET PO ONE (01:30)
[2023-05-01] MEDS ORDERED: cefTRIAXone 1 GM in LIDOCAINE 1%, 20 ML MDV 2.1 ML IM ONE (01:45)
[2023-05-01 01:49] LABS: BACTERIA,URINE FEW /HPF (None Seen)
[2023-05-01] MEDS ORDERED: MORPHINE 4 MG INJ. 4 MG/ML VIAL IM ONE (02:45)
[2023-05-01] MEDS ORDERED: MORPHINE 4 MG INJ. 4 MG/ML VIAL IVP ONE (03:00)
[2023-05-01] MEDS ORDERED: ONDANSETRON HCL 4 MG/2 ML VIAL IVP ONE (03:00)
[2023-05-01] MEDS ORDERED: DIVA250T PO (04:33)
[2023-05-01] MEDS ORDERED: [UNRECOGNIZED DRUG - CODE] PO (04:33)
[2023-05-01] MEDS ORDERED: RIVA20TA PO (04:33)
[2023-05-01] MEDS ORDERED: GABA-534 PO (04:33)
[2023-05-01] MEDS ORDERED: CEL250 PO (04:33)
[2023-05-01] MEDS ORDERED: BEN50 PO (04:33)
[2023-05-01] MEDS ORDERED: SODI10PO PO (04:33)
[2023-05-01] MEDS ORDERED: DOCU-144 PO (04:33)
[2023-05-01] MEDS ORDERED: CARB1TAB33 PO (04:33)
[2023-05-01] MEDS ORDERED: VIBE75TA (04:33)
[2023-05-01] MEDS ORDERED: ARIP10TA9 PO (04:33)
[2023-05-01] MEDS ORDERED: LACO200T2 PO (04:33)
[2023-05-01] MEDS ORDERED: ONDA-8 TL (04:33)
[2023-05-01] MEDS ORDERED: LEVE500T21 PO (04:33)
[2023-05-01] MEDS ORDERED: BUSP10TA3 PO (04:33)
[2023-05-01] MEDS: NACL 0.9% 1,000 ML IV SCH ×2 (05:24→19:33)
[2023-05-01] MEDS: HYDROmorphone 1 MG/ML INJ. CARTRIDGE IVP PRN ×3 (05:45→21:37)
[2023-05-01 06:33] LABS: BASOPHILS % (AUTO) 1.2 % (0.0-2.0); EOSINOPHILS % (AUTO) 6.3 % (0.0-4.0); LYMPHOCYTES % (AUTO) 44.1 % (20.5-51.5); MONOCYTES % (AUTO) 16.1 % (1.7-9.3); NEUTROPHILS # (AUTO) 0.8 K/uL (1.8-7.7); NEUTROPHILS % (AUTO) 32.3 % (40.0-70.0)
[2023-05-01 06:34] LABS: EOSINOPHILS # (AUTO) 0.1 K/uL (0.0-0.4); MONOCYTES # (AUTO) 0.4 K/uL (0.0-1.0)
[2023-05-01] MEDS ORDERED: HYDROcodone/ACETAMIN 5-325 MG TAB (NORCO/ VICODIN) PO PRN (09:00)
[2023-05-01] MEDS ORDERED: HEPARIN 25,000 UNITS/D5W 250ML 250 ML IV PRN (09:00)
[2023-05-01] MEDS ORDERED: predniSONE 5 MG TABLET PO SCH (09:00)
[2023-05-01] MEDS ORDERED: APIXABAN 2.5 MG TABLET PO SCH (09:15)
[2023-05-01] MEDS ORDERED: APIXABAN 2.5 MG TABLET PO ONE (10:00)
[2023-05-01] MEDS: levETIRAcetam 500 MG TABLET PO SCH ×2 (12:04→21:21)
[2023-05-01] MEDS: DOCUSATE SODIUM 100 MG CAPSULE PO SCH (12:04)
[2023-05-01] MEDS: busPIRone HCL 5 MG TABLET PO SCH (12:04)
[2023-05-01] MEDS: ARIPiprazole 5 MG TAB PO SCH (12:04)
[2023-05-01] MEDS: GABAPENTIN 400 MG CAPSULE PO SCH (12:04)
[2023-05-01] MEDS: CARBIDOPA/LEVODOPA 25/100 MG TABLET PO SCH (12:04)
[2023-05-01] MEDS: DULoxetine HCL 30 MG CAPSULE.DR (CYMBALTA) PO SCH (12:05)
[2023-05-01] MEDS: FAMOTIDINE 20 MG TABLET PO SCH (12:05)
[2023-05-01] MEDS: DIVALPROEX SODIUM 250 MG TAB.SR.24H (DEPAKOTE ER) PO SCH (12:09)
[2023-05-01] MEDS: mycophenolate mofetiL 250 MG CAPSULE PO SCH ×2 (12:09→21:21)
[2023-05-01] MEDS: LACOSAMIDE 100 MG TABLET PO SCH ×2 (12:10→21:21)
[2023-05-01] MEDS: cefTRIAXone 1 GM IVPB PREMIX 50 ML IV SCH (12:43)
[2023-05-01 15:57] LABS: BASOPHILS % (AUTO) 0.9 % (0.0-2.0); EOSINOPHILS # (AUTO) 0.2 K/uL (0.0-0.4); HEMATOCRIT 31.6 % (36-48); HEMOGLOBIN 10.2 g/dL (12.0-16.0); LYMPHOCYTES # (AUTO) 1.4 K/uL (1.0-5.5); MEAN CORPUSCULAR HEMOGLOBIN 31 pg (27-31); MEAN CORPUSCULAR HGB CONC 32 % (32-36); MEAN CORPUSCULAR VOLUME 95 fL (79.0-98.0); MONOCYTES # (AUTO) 0.4 K/uL (0.0-1.0); MONOCYTES % (AUTO) 14.4 % (1.7-9.3); NEUTROPHILS % (AUTO) 32.7 % (40.0-70.0); PLATELET COUNT (AUTO) 118 K/uL (130-430); RED BLOOD CELL COUNT(AUTO) 3.32 MIL/uL (4.2-6.2); RED CELL DISTRIBUTION WIDTH 14.5 % (9.0-15.0)
[2023-05-01] MEDS: APIXABAN 2.5 MG TABLET PO SCH (21:22)
[2023-05-02] MEDS: HYDROmorphone 1 MG/ML INJ. CARTRIDGE IVP PRN ×3 (04:42→17:05)
[2023-05-02] MEDS: NACL 0.9% 1,000 ML IV SCH (06:08)
[2023-05-02 07:52] LABS: CALCIUM 8.8 mg/dL (8.4-11.0); CREATININE 0.62 mg/dL (0.55-1.30); POTASSIUM 4.3 mmol/L (3.5-5.1); TOTAL BILIRUBIN 0.3 mg/dL (0.0-1.0); TOTAL PROTEIN, SERUM 7.5 g/dL (6.4-8.3)
[2023-05-02 08:30] VITALS: BP_SYST 143; PULSE 81; RESP 20; O2SAT 98
[2023-05-02] MEDS: cefTRIAXone 1 GM IVPB PREMIX 50 ML IV SCH (08:39)
[2023-05-02] MEDS: DULoxetine HCL 30 MG CAPSULE.DR (CYMBALTA) PO SCH (08:40)
[2023-05-02] MEDS: busPIRone HCL 5 MG TABLET PO SCH (08:40)
[2023-05-02] MEDS: DIVALPROEX SODIUM 250 MG TAB.SR.24H (DEPAKOTE ER) PO SCH (08:40)
[2023-05-02] MEDS: mycophenolate mofetiL 250 MG CAPSULE PO SCH (08:40)
[2023-05-02] MEDS: levETIRAcetam 500 MG TABLET PO SCH (08:42)
[2023-05-02] MEDS: FAMOTIDINE 20 MG TABLET PO SCH (08:42)
[2023-05-02] MEDS: CARBIDOPA/LEVODOPA 25/100 MG TABLET PO SCH (08:42)
[2023-05-02] MEDS: GABAPENTIN 400 MG CAPSULE PO SCH (08:42)
[2023-05-02] MEDS: DOCUSATE SODIUM 100 MG CAPSULE PO SCH (08:42)
[2023-05-02] MEDS: LACOSAMIDE 100 MG TABLET PO SCH (08:42)
[2023-05-02] MEDS: ARIPiprazole 5 MG TAB PO SCH (08:42)
[2023-05-02] MEDS: APIXABAN 2.5 MG TABLET PO SCH (08:42)
[2023-05-02] MEDS ORDERED: cloNIDine HCL 0.1 MG TABLET PO PRN (09:00)
[2023-05-02] MEDS ORDERED: LORazepam 2 MG/ML VIAL IVP PRN (09:00)
[2023-05-02 11:03] VITALS: O2SAT 98
[2023-05-02 11:48] VITALS: BP_SYST 137; PULSE 78; RESP 17; TEMP 98; O2SAT 95
[2023-05-02 14:55] VITALS: BP_SYST 110; PULSE 69; RESP 16; TEMP 98.8; O2SAT 96
[2023-05-02 16:53] VITALS: BP_SYST 110; PULSE 69; RESP 16; TEMP 98.8; O2SAT 96
== END 2023-05-02 15:45 | DRG 101 ==
LOC: SED 23:12 → STU 05-01 03:02
PROVIDERS: ADMIT Internal Medicine; ATTEND Internal Medicine
DX: G40.909 Epilepsy, unspecified, not intractable, without status epilepticus (principal); D61.818 Other pancytopenia; F02.83 Dementia in other diseases classified elsewhere, unspecified severity, with mood disturbance; N39.0 Urinary tract infection, site not specified; Z16.30 Resistance to unspecified antimicrobial drugs; E11.40 Type 2 diabetes mellitus with diabetic neuropathy, unspecified; E11.65 Type 2 diabetes mellitus with hyperglycemia; F20.9 Schizophrenia, unspecified; F31.9 Bipolar disorder, unspecified; G20.A1 Parkinson's disease without dyskinesia, without mention of fluctuations; I10 Essential (primary) hypertension; F41.9 Anxiety disorder, unspecified; M34.1 CR(E)ST syndrome; Z63.5 Disruption of family by separation and divorce; Z86.718 Personal history of other venous thrombosis and embolism; Z86.73 Personal history of transient ischemic attack (TIA), and cerebral infarction without residual deficits; Z79.899 Other long term (current) drug therapy; Z88.0 Allergy status to penicillin; Z88.8 Allergy status to other drugs, medicaments and biological substances; M32.9 Systemic lupus erythematosus, unspecified
CPT/HCPCS: 36415; 70450-TC; 71045; 76376; 76700-TC; 80053; 80074; 81000; 81001; 81015; 83605; 85025; 85730-TC; 87040; 87081; 87086; 93005; 93971; 95816; 99285; G0378; J0696; J1170; J1953; J2001; J2060; J7517